=== PATIENT | female | born 1990 | race Caucasian/White ===

== ENCOUNTER 2016-08-13 21:46 | Emergency (ER) | payer MEDICAID, OTHER ==
[~2016-08-13] VITALS: Ht 162.6 cm; Wt 62.0 kg
[2016-08-13 21:48] VITALS: BP 134/82; PULSE 110; RESP 20; TEMP 98.2; O2SAT 100
--- NOTE | 2016-08-13 22:32 | PD ---
HPI Chief Complaint: BA Time Seen by Provider: 22:32 Travel History International Travel<30 days: No Contact w/Intl Traveler<30days: No Traveled to known affect area: No History of Present Illness HPI 25-year-old female with history of depression, who is 33 weeks presents to the emergency department for psychiatric evaluation under [place] act. Patient states that prior to her , she was on Zoloft for 2 months but states this only worsened her depression. She has not at all during her . Patient has had suicidal thoughts this indefinitely. She texted boyfriend this evening allegedly stating that she she wasn't or she could be . Patient does not, numbness. She denies any illicit drug use. Denies abdominal pain, cramping, vaginal discharge, bleeding. Is followed by Dr. Martini, [employer]. Denies any recent illnesses, fever, or chills. She has no other symptoms to report. PFSH Past Medical History Medical History: Denies Significant Hx ?: Social History Alcohol Use: No Tobacco Use: No Substance Use: No Review of Systems Except as stated in HPI: all other systems reviewed are Neg Physical Exam Narrative GENERAL: Well-nourished female patient, in no acute distress SKIN: Warm and dry. HEAD: Atraumatic. Normocephalic. EYES: Pupils equal and round. No scleral icterus. No injection or drainage. ENT: No nasal bleeding or discharge. Mucous membranes pink and moist. NECK: Trachea midline. No JVD. CARDIOVASCULAR: Regular rate and rhythm. No murmur appreciated. RESPIRATORY: No accessory muscle use. Clear to auscultation. Breath sounds equal bilaterally. GASTROINTESTINAL: Abdomen soft, non-tender, nondistended. Consistent with . Hepatic and splenic margins not palpable. MUSCULOSKELETAL: No obvious deformities. No clubbing. No cyanosis. No edema. NEUROLOGICAL: Awake and alert. No obvious cranial nerve deficits. Motor grossly within normal limits. Normal speech. Data Data Last Documented VS Vital Signs Date Time Temp Pulse Resp B/P Pulse Ox O2 Delivery O2 Flow Rate FiO2 08/13/16 21:48 98.2 110 20 134/82 100 Room Air Orders Complete Blood Count With Diff (08/13/16 22:32) Basic Metabolic Panel (Bmp) (08/13/16 22:32) Urinalysis - C+S If Indicated (08/13/16 22:32) Drug Screen, Random Urine (08/13/16 22:32) Alcohol (Ethanol) (08/13/16 22:32) Psych Screen (08/13/16 22:32) Ed Poc Ultrasound (08/13/16 ) MDM Medical Decision Making Medical Screen Exam Complete: Yes Emergency Medical Condition: Yes Medical Record Reviewed: Yes Differential Diagnosis Depression versus adjustment reaction disorder versus mood disorder versus personality disorder Narrative Course 25 year-old female department under a [place] act for psychiatric evaluation. Lab work is ordered for medical clearance. Bedside POC ultrasound complete with positive movement and heart rate identified. Lab work is pending. An acute abnormality. Patient will be medically cleared to psychiatric screening for further evaluation and disposition. Mental health screening discussed with the patient. Psychiatric screen ordered. Diagnosis Primary Impression: Depressed Qualified Code: O99.343 - Depression during in third trimester Additional Impression: Qualified Code: Z3A.33 - 33 weeks gestation of Condition: Stable Chrystal Diaz Aug 13, 2016 22:32
[2016-08-13] MEDS ORDERED: PREN29TA PO (23:20)
[2016-08-13 23:25] LABS: AUTOMATED NEUTROPHIL # 8.3 TH/MM3 (1.8-7.7); BACTERIA, URINE RARE /hpf; BASOPHIL # 0.1 TH/MM3 (0-0.2); BASOPHIL % 0.5 % (0.0-2.0); BLOOD, URINE NEG (NEG); COMMENT (UR) CULT NOT INDICATED; CULTURE IF INDICATED CULT NOT INDICATED; EOSINOPHIL # 0.2 TH/MM3 (0-0.4); EOSINOPHIL % 1.5 % (0.0-4.0); GLUCOSE,URINE NEG (NEG); HEMATOCRIT 38.8 % (35.0-46.0); HEMO FLAGS DIFF FINAL; KETONE, URINE TRACE mg/dL (NEG); LYMPH % 23.8 % (9.0-44.0); LYMPHOCYTE # 2.9 TH/MM3 (1.0-4.8); MEAN CELL VOLUME 84.2 FL (80.0-100.0); MEAN CORPUSCULAR HEMOGLOBIN 28.1 PG (27.0-34.0); MEAN CORPUSCULAR HGB CONC 33.3 % (32.0-36.0); MUCUS URINE FEW /lpf (OCC); NEUT % 67.2 % (16.0-70.0); NITRITE,URINE NEG (NEG); PH, URINE 6.5 (5.0-8.5); PLATELET COUNT 181 TH/MM3 (150-450); RED CELL DISTRIBUTION WIDTH 12.7 % (11.6-17.2); SQUAMOUS EPITHELIAL CELL URINE 4 /hpf (0-5); URINE COLOR YELLOW (YELLW/STRAW); WHITE BLOOD COUNT 12.4 TH/MM3 (4.0-11.0)
[2016-08-13 23:30] LABS: AMPHETAMINE, URINE NEG (NEG); BARBITURATES, URINE NEG (NEG)
[2016-08-13 23:38] LABS: ANION GAP 7 MEQ/L (5-15); BICARBONATE 25.6 MEQ/L (21.0-32.0); BLOOD UREA NITROGEN 5 MG/DL (7-18); CHLORIDE 107 MEQ/L (98-107); GLOMERULAR FILTRATION RATE 146 ML/MIN (>89); POTASSIUM 3.7 MEQ/L (3.5-5.1); SODIUM (NA) 140 MEQ/L (136-145)
[2016-08-14] LABS: COCAINE, URINE NEG (NEG)
[2016-08-14 06:00] VITALS: BP 115/57; PULSE 82; RESP 18; O2SAT 99
--- NOTE | 2016-08-14 11:07 | PD.CONS ---
Provisional Diagnosis Admission Date [place] I. Adjustment disorder with depressed mood [place] II. Deferred [place] III. 33 weeks [place] IV. Poor family support [place] V. 55 History of Present Illness Service Psychiatry Consult Requested By Primary Care Physician No Primary Care Physician HPI The patient is a 25-year-old white woman, domiciled with her fianc and mother- in-law, unemployed, with psychiatric history of depression, self cutting behavior, no previous suicidal attempts, no previous psychiatric hospitalizations, no previous history of psychiatric outpatient care, Patient states that prior to her , she was on Zoloft for 2 months prescribed by primary care physician, but states this only worsened her depression, no significant medical history, who is 33 weeks presents to the emergency department for psychiatric evaluation under [place] act. as per Er note "She has not at all during her . Patient has had suicidal thoughts this indefinitely. She texted boyfriend this evening allegedly stating that she she wasn't or she could be ." On psychiatric evaluation today patient was found calm and cooperative, she is states that a lot of her she has been having frequent episodes of mood swings, at one moment she is extremely happy, but minutes later she could be strictly sad, or extremely upset. She says that she always have been related, but as her get closer to the end she has noticed mood swings are worse. Patient says that sometimes thinking about how distant she is from her natural family, the fact that she is going to give very soon make her very anxious and sad, however she denies depression, anhedonia, hopelessness, helplessness, worthlessness, suicidal or homicidal ideation. Yesterday, she states, I was just mad when I say I will hurt myself if I would not . At this moment the patient denies suicidal ideation, she says that her mood is 8/10. She denies perceptual disturbances, anxiety, charis, psychosis, delusions and paranoia. Patient denies the use of illicit drugs and alcohol. Her mother in law, contacted for collateral information, does not report any safety complain regarding the patient, and the states that she feels happy to take her daughter in law back home. Review of Systems Constitutional: DENIES: Diaphoretic episodes, Fatigue, Fever, Weight gain, Weight loss, Chills, Dizziness, Change in appetite, Night Sweats Endocrine: DENIES: Abnorml menstrual pattern, Heat/cold intolerance, Polydipsia , Polyuria, Polyphagia Eyes: DENIES: Blurred vision, Diplopia, Eye inflammation, Eye pain, Vision loss , Photosensitivity, Double Vision Ears, nose, mouth, throat: DENIES: Tinnitus, Hearing loss, Vertigo, Nasal discharge, Oral lesions, Throat pain, Hoarseness, Ear Pain, Running Nose, Epistaxis, Sinus Pain, Toothache, Odynophagia Respiratory: DENIES: Apneas, Cough, Snoring, Wheezing, Hemoptysis, Sputum production, Shortness of breath Cardiovascular: DENIES: Chest pain, Palpitations, Syncope, Dyspnea on Exertion , PND, Lower Extremity Edema, Orthopnea, Claudication Musculoskeletal: DENIES: Joint pain, Muscle aches, Stiffness, Joint Swelling, Back pain, Neck pain Integumentary: DENIES: Abnormal pigmentation, Pruritus, Rash, Nail changes, Breast masses, Breast skin changes, Nipple discharge Hematologic/lymphatic: DENIES: Bruising, Lymphadenopathy Immunologic/allergic: DENIES: Eczema, Urticaria Neurologic: DENIES: Abnormal gait, Headache, Localized weakness, Paresthesias, Seizures, Speech Problems, Tremor, Poor Balance Psychiatric: DENIES: Anxiety, Confusion, Mood changes, Depression, Hallucinations, Agitation, Suicidal Ideation, Homicidal Ideation, Delusions Past Family Social History Coded Allergies: Cipro (Verified Allergy, Unknown, 08/13/16) Penicillin (Verified Allergy, Unknown, 08/13/16) Reported Medications Vit-Iron Carbonyl ( Plus Iron 29-1 mg)1 Tab Tab1 Tab PO DAILY #30 TAB Ref 0 08/13/16 Family History She denies Social History Patient was born and raised in [place], she is in [place] with her fianc and [id number], she is unemployed, her highest level of education is has Physical Exam Vital Signs Vital Signs Date Time Temp Pulse Resp B/P Pulse Ox O2 Delivery O2 Flow Rate FiO2 08/14/16 06:00 82 18 115/57 99 Room Air 08/13/16 21:48 98.2 Mental Status Examination Appearance woman, she has a visible , good hygiene, calm and cooperative Speech: Unremarkable Orientation: x3 Memory: Unremarkable Thought Process: Logical Thought Content: Unremarkable Hallucination Type: None Attention and Concentration: Good Suicidal Ideation: No Previous Suicide Attempts: No Homicidal Ideation: No Previous Homicide Attempts: No Judgement: WNL Affect: Good Mood: Appropriate Motor Activity: Normal gait Assessment & Plan Problem List: (1) Adjustment disorder with depressed mood Assessment & Plan: 25-year-old woman, a psychiatric history of self cutting behavior, depression, no previous psychiatric hospitalizations, 33 weeks , brought under [place] act after a suicidal statement to her fianc , on psychiatric evaluation today patient does not present any evidence of depression, anxiety, perceptual disturbances or charis.. Patient does report having increased mood swings as the gets to its end, also increased anxiety. As a consequence she feels that she is more sensitive to criticism and rejection and to have frequent arguments with her fianc and people in general. However, patient denies suicidal or homicidal ideation, visual and auditory hallucinations. She does not meet criteria for psychiatric admission at this moment. She was widely educated about her increased risk for depression and anxiety, even for psychosis, during and right after giving . The patient and her [id number], both, where recommended to look for outpatient psychiatric care to monitor closely this mood swings of the patient. They both agree with this plan. [place] act will be lifted. No psychotropic medications indicated. ICD Code: F43.21 Assessment & Plan Estimated LOS: Miguel Daniel MD Aug 14, 2016 11:06
== END 2016-08-14 09:56 | disposition home or self-care (01) ==
LOC: NEPA 21:46 → NEPJ 08-14 09:56
DX: O99.343 Other mental disorders complicating pregnancy, third trimester (principal); F43.21 Adjustment disorder with depressed mood; Z3A.33 33 weeks gestation of pregnancy
CPT/HCPCS: 80048; 80307; 80320; 81001; 85025; 99284